=== PATIENT | male | born 1935 | race Caucasian/White ===

== ENCOUNTER 2017-03-16 20:29 | Emergency (ER) | payer SELFPAY ==
[~2017-03-16] VITALS: Ht 180.3 cm; Wt 72.6 kg
[2017-03-16] MEDS ORDERED: HYDROmorphone HCL 2 MG/ML VL IV ONE ×3 (21:00→22:00)
[2017-03-16] MEDS ORDERED: ONDANSETRON HCL 4 MG/2 ML VIAL IV ONE (21:00)
[2017-03-16 21:47] VITALS: BP 117/67
[2017-03-16] MEDS ORDERED: SODIUM CHLORIDE 0.9% 1,000 ML IVB ONE (21:58)
== END 2017-03-16 22:53 | disposition left against medical advice (07) ==
LOC: ER 20:37
DX: S72.001A Fracture of unspecified part of neck of right femur, initial encounter for closed fracture (principal); W18.39XA Other fall on same level, initial encounter; Y93.89 Activity, other specified; Y92.89 Other specified places as the place of occurrence of the external cause; Y99.8 Other external cause status
CPT/HCPCS: 71010; 73502; 73552; 93005; 94761; 96374; 96375; 96376; 99285; J1170; J2405

== ENCOUNTER 2018-07-27 19:08 | Inpatient (IN) | payer MEDICARE ==
[~2018-07-27] VITALS: Ht 180.3 cm; Wt 66.5 kg
[2018-07-27 20:57] LABS: INR 1.03 (0.9-1.15); Partial Thromboplastin Time 27.8 sec (23.78-33.04)
[2018-07-27 20:59] LABS: Basophils # (auto) 0 uL; Basophils % (auto) 0.3 % (0.0-2.0); Eosinophils # (auto) 0 uL; Eosinophils % (auto) 0.2 % (0.0-7.0); Hematocrit 41.6 % (41.0-53.0); Lymphocytes # (auto) 0.6 uL; Lymphocytes % (auto) 5.6 % (10.0-50.0); Mean Corpuscular Hemoglobin 32.4 pg (28.0-32.0); Mean Corpuscular Hgb Conc. 33.6 g/dL (32.0-36.0); Mean Corpuscular Volume 96.4 fL (80.0-100.0); Monocytes # (auto) 1.2 uL; Monocytes % (auto) 10.9 % (0.0-12.0); Neutrophils # (auto) 9.5 uL; Platelet Count (auto) 189 10^3/uL (140-450); Red Blood Cells 4.32 10^6/uL (4.5-5.90); Red Cell Distribution Width 15.1 % (11.8-14.3); White Blood Cell 11.4 10^3/uL (4.4-10.8)
[2018-07-27 21:04] LABS: Albumin 3.6 g/dL (3.4-5.0); BUN/Creatinine Ratio 9.5; Bilirubin, Total 0.6 mg/dL (0.2-1.0); Potassium 3.7 mmol/L (3.5-5.1); Total Protein 7.3 g/dL (6.4-8.2)
[2018-07-27 21:09] LABS: Urine Bacteria NONE SEEN /hpf (None Seen); Urine Blood 3+ /uL (Negative); Urine Mucus FEW (None Seen); Urine Specific Gravity 1.016 (1.001-1.035); Urine WBC 1 /hpf (0 - 3)
[2018-07-27] MEDS ORDERED: LEVOFLOXACIN 500 MG TAB PO ONE (22:45)
[2018-07-28] VITALS (7 sets, daily range): BP systolic 96–133; BP diastolic 60–69
[2018-07-28] MEDS ORDERED: ONDANSETRON HCL 4 MG/2 ML VIAL IV PRN (00:45)
[2018-07-28] MEDS ORDERED: ACETAMINOPHEN 325 MG TAB PO PRN (00:45)
[2018-07-28] MEDS: SODIUM CHLORIDE 0.9% 1,000 ML IV SCH ×2 (02:18→19:20)
[2018-07-28] MEDS: HYDROcodone-ACET 5/325MG TAB PO PRN ×3 (03:39→20:44)
[2018-07-28] MEDS: PANTOPRAZOLE 40 MG TAB PO SCH (07:30)
[2018-07-28] MEDS: cefTRIAXone 1GM/10ml IVPUSH 10 ML IV SCH (08:41)
[2018-07-28] MEDS ORDERED: FINASTERIDE 5 MG TAB PO ONE (12:45)
[2018-07-28] MEDS ORDERED: TAMSULOSIN HYDROCHLORIDE 0.4 MG CAP PO ONE (12:45)
[2018-07-28] MEDS: TAMSULOSIN HYDROCHLORIDE 0.4 MG CAP PO SCH (19:11)
[2018-07-28] MEDS: DOCUSATE SOD 100 MG CAP PO SCH (20:43)
[2018-07-29] MEDS: SODIUM CHLORIDE 0.9% 1,000 ML IV SCH ×2 (03:21→16:41)
[2018-07-29 05:00] VITALS: BP 97/53
[2018-07-29] MEDS: PANTOPRAZOLE 40 MG TAB PO SCH (05:48)
[2018-07-29 07:03] LABS: Basophils # (auto) 0.1 uL; Basophils % (auto) 0.7 % (0.0-2.0); Eosinophils # (auto) 0.1 uL; Eosinophils % (auto) 1.4 % (0.0-7.0); Hematocrit 33.5 % (41.0-53.0); Hemoglobin 11.5 g/dL (13.5-17.5); Lymphocytes # (auto) 1.2 uL; Lymphocytes % (auto) 12.3 % (10.0-50.0); Mean Corpuscular Hemoglobin 32.6 pg (28.0-32.0); Mean Corpuscular Hgb Conc. 34.4 g/dL (32.0-36.0); Monocytes # (auto) 1.2 uL; Monocytes % (auto) 12.3 % (0.0-12.0); Neutrophils # (auto) 7.1 uL; Neutrophils % (auto) 73.3 % (37.0-80.0); Nucleated Red Blood Cells % 0.1 %; Platelet Count (auto) 157 10^3/uL (140-450); Red Blood Cells 3.52 10^6/uL (4.5-5.90); Red Cell Distribution Width 14.9 % (11.8-14.3); White Blood Cell 9.8 10^3/uL (4.4-10.8)
[2018-07-29 07:20] LABS: Albumin 2.6 g/dL (3.4-5.0); BUN/Creatinine Ratio 16.7; Calcium 8.2 mg/dL (8.5-10.1); Potassium 3.4 mmol/L (3.5-5.1)
[2018-07-29 07:23] LABS: Bilirubin, Total 0.7 mg/dL (0.2-1.0); Total Protein 5.8 g/dL (6.4-8.2)
[2018-07-29 09:00] VITALS: BP 91/73
[2018-07-29] MEDS: DOCUSATE SOD 100 MG CAP PO SCH ×2 (10:51→21:42)
[2018-07-29] MEDS: cefTRIAXone 1GM/10ml IVPUSH 10 ML IV SCH (10:51)
[2018-07-29] MEDS: FINASTERIDE 5 MG TAB PO SCH (10:52)
[2018-07-29] MEDS ORDERED: LACTULOSE 20Gm/30ML SOLN PO ONE (11:00)
[2018-07-29] MEDS: HYDROcodone-ACET 5/325MG TAB PO PRN (11:09)
[2018-07-29 13:00] VITALS: BP 100/55
[2018-07-29 17:00] VITALS: BP 111/60
[2018-07-29] MEDS: TAMSULOSIN HYDROCHLORIDE 0.4 MG CAP PO SCH (17:14)
[2018-07-29 22:00] VITALS: BP 105/59
[2018-07-30] MEDS: HYDROcodone-ACET 5/325MG TAB PO PRN ×2 (02:07→23:06)
[2018-07-30 05:00] VITALS: BP 107/59
[2018-07-30] MEDS: SODIUM CHLORIDE 0.9% 1,000 ML IV SCH ×2 (05:37→19:21)
[2018-07-30 08:00] VITALS: BP 112/82
[2018-07-30] MEDS: PANTOPRAZOLE 40 MG TAB PO SCH (08:03)
[2018-07-30 08:04] LABS: Basophils # (auto) 0.1 uL; Eosinophils # (auto) 0.1 uL; Eosinophils % (auto) 0.6 % (0.0-7.0); Hematocrit 34.3 % (41.0-53.0); Hemoglobin 11.5 g/dL (13.5-17.5); Lymphocytes # (auto) 1.4 uL; Mean Corpuscular Hemoglobin 31.9 pg (28.0-32.0); Mean Corpuscular Hgb Conc. 33.5 g/dL (32.0-36.0); Mean Corpuscular Volume 95.1 fL (80.0-100.0); Monocytes # (auto) 1.1 uL; Monocytes % (auto) 13.7 % (0.0-12.0); Neutrophils # (auto) 5.5 uL; Neutrophils % (auto) 67.7 % (37.0-80.0); Nucleated Red Blood Cells % 0.1 %; Platelet Count (auto) 164 10^3/uL (140-450); Red Cell Distribution Width 14.8 % (11.8-14.3); White Blood Cell 8.1 10^3/uL (4.4-10.8)
[2018-07-30 08:15] LABS: Albumin 2.8 g/dL (3.4-5.0); BUN/Creatinine Ratio 12.5; Bilirubin, Total 0.8 mg/dL (0.2-1.0); Calcium 8.1 mg/dL (8.5-10.1); Potassium 3.2 mmol/L (3.5-5.1); Total Protein 6.3 g/dL (6.4-8.2)
[2018-07-30 09:00] VITALS: BP 102/75
[2018-07-30] MEDS ORDERED: POTASSIUM CHL 20 Meq TABLET PO ONE (09:30)
[2018-07-30] MEDS: cefTRIAXone 1GM/10ml IVPUSH 10 ML IV SCH (09:41)
[2018-07-30] MEDS: DOCUSATE SOD 100 MG CAP PO SCH ×2 (09:42→22:00)
[2018-07-30] MEDS: FINASTERIDE 5 MG TAB PO SCH (09:42)
[2018-07-30 13:00] VITALS: BP 99/70
[2018-07-30 17:53] VITALS: BP 101/77
[2018-07-30] MEDS: TAMSULOSIN HYDROCHLORIDE 0.4 MG CAP PO SCH (17:57)
[2018-07-30 22:00] VITALS: BP 107/56
[2018-07-31] MEDS: HYDROcodone-ACET 5/325MG TAB PO PRN ×4 (00:27→18:10)
[2018-07-31 05:00] VITALS: BP 131/66
[2018-07-31] MEDS: PANTOPRAZOLE 40 MG TAB PO SCH ×2 (06:50→09:06)
[2018-07-31 08:00] VITALS: BP 122/66
[2018-07-31] MEDS: SODIUM CHLORIDE 0.9% 1,000 ML IV SCH (08:41)
[2018-07-31 08:52] VITALS: BP 121/66
[2018-07-31] MEDS: FINASTERIDE 5 MG TAB PO SCH (09:05)
[2018-07-31] MEDS: DOCUSATE SOD 100 MG CAP PO SCH ×2 (09:06→22:00)
[2018-07-31] MEDS: cefTRIAXone 1GM/10ml IVPUSH 10 ML IV SCH (09:06)
[2018-07-31] MEDS ORDERED: LACTULOSE 20Gm/30ML SOLN PO PRN (09:30)
[2018-07-31 13:02] LABS: Basophils # (auto) 0.1 uL; Basophils % (auto) 0.9 % (0.0-2.0); Eosinophils # (auto) 0.1 uL; Eosinophils % (auto) 0.9 % (0.0-7.0); Hematocrit 35.1 % (41.0-53.0); Hemoglobin 11.7 g/dL (13.5-17.5); Lymphocytes % (auto) 12.8 % (10.0-50.0); Mean Corpuscular Hemoglobin 31.8 pg (28.0-32.0); Mean Corpuscular Hgb Conc. 33.3 g/dL (32.0-36.0); Mean Corpuscular Volume 95.5 fL (80.0-100.0); Monocytes # (auto) 0.9 uL; Monocytes % (auto) 11.9 % (0.0-12.0); Neutrophils # (auto) 5.9 uL; Neutrophils % (auto) 73.5 % (37.0-80.0); Platelet Count (auto) 174 10^3/uL (140-450); Red Blood Cells 3.68 10^6/uL (4.5-5.90); Red Cell Distribution Width 14.3 % (11.8-14.3)
[2018-07-31 13:06] VITALS: BP 104/69
[2018-07-31 13:18] LABS: Albumin 2.8 g/dL (3.4-5.0); BUN/Creatinine Ratio 15.6; Calcium 8.4 mg/dL (8.5-10.1); Potassium 3.2 mmol/L (3.5-5.1)
[2018-07-31 13:23] LABS: Bilirubin, Total 0.8 mg/dL (0.2-1.0); Total Protein 6.6 g/dL (6.4-8.2)
[2018-07-31 17:00] VITALS: BP 115/70
[2018-07-31] MEDS: TAMSULOSIN HYDROCHLORIDE 0.4 MG CAP PO SCH (17:46)
[2018-07-31 20:00] VITALS: BP 115/60
[2018-08-01] MEDS: HYDROcodone-ACET 5/325MG TAB PO PRN (03:45)
[2018-08-01 05:00] VITALS: BP 119/67
[2018-08-01] MEDS: PANTOPRAZOLE 40 MG TAB PO SCH (05:00)
[2018-08-01 06:19] LABS: Basophils # (auto) 0.1 uL; Basophils % (auto) 0.8 % (0.0-2.0); Eosinophils # (auto) 0.1 uL; Eosinophils % (auto) 0.8 % (0.0-7.0); Hematocrit 34.3 % (41.0-53.0); Hemoglobin 11.6 g/dL (13.5-17.5); Lymphocytes # (auto) 0.9 uL; Lymphocytes % (auto) 10.9 % (10.0-50.0); Mean Corpuscular Hgb Conc. 33.6 g/dL (32.0-36.0); Mean Corpuscular Volume 95.2 fL (80.0-100.0); Monocytes # (auto) 0.9 uL; Monocytes % (auto) 10.3 % (0.0-12.0); Neutrophils # (auto) 6.4 uL; Neutrophils % (auto) 77.2 % (37.0-80.0); Platelet Count (auto) 182 10^3/uL (140-450); Red Blood Cells 3.61 10^6/uL (4.5-5.90); Red Cell Distribution Width 14.3 % (11.8-14.3); White Blood Cell 8.2 10^3/uL (4.4-10.8)
[2018-08-01 06:44] LABS: Calcium 8.3 mg/dL (8.5-10.1)
[2018-08-01 06:47] LABS: Albumin 2.7 g/dL (3.4-5.0); BUN/Creatinine Ratio 12.9
[2018-08-01 06:59] LABS: Bilirubin, Total 0.8 mg/dL (0.2-1.0); Total Protein 6.6 g/dL (6.4-8.2)
[2018-08-01] MEDS: SODIUM CHLORIDE 0.9% 1,000 ML IV SCH ×2 (09:37→11:21)
[2018-08-01] MEDS: cefTRIAXone 1GM/10ml IVPUSH 10 ML IV SCH (09:37)
[2018-08-01] MEDS: FINASTERIDE 5 MG TAB PO SCH (10:00)
[2018-08-01] MEDS: DOCUSATE SOD 100 MG CAP PO SCH ×2 (10:00→23:00)
[2018-08-01] MEDS ORDERED: POTASSIUM CHL 20 Meq TABLET PO ONE (10:30)
[2018-08-01] MEDS ORDERED: METOCLOPRAMIDE HCL 5MG/ml INJ 2ml VIAL IV ONE (15:28)
[2018-08-01] MEDS ORDERED: MIDAZOLAM HCL 1MG/1ML-2 ML VIAL ONE (15:34)
[2018-08-01] MEDS ORDERED: ROCURONIUM 10MG/ML 10ML VIAL IV ONE (15:36)
[2018-08-01] MEDS ORDERED: LIDOCAINE 2% (LOCAL ANESTH.) PF 5ml SDV ONE (15:36)
[2018-08-01] MEDS ORDERED: ETOMIDATE (2MG/ML) 20ML VIAL IV ONE (15:36)
[2018-08-01] MEDS ORDERED: fentaNYL CITRATE 100 MCG/2 ML VL ONE (15:47)
[2018-08-01] MEDS ORDERED: NALOXONE HCL 0.4 MG/ML VIAL IV PRN (16:00)
[2018-08-01] MEDS ORDERED: MORPHINE SULFATE 4 MG/ML SYR/VIAL IV PRN (16:00)
[2018-08-01] MEDS ORDERED: ONDANSETRON HCL 4 MG/2 ML VIAL IV ONE (16:00)
[2018-08-01] MEDS ORDERED: BELLADONNA ALKAL/OPIUM (16.2/30MG) RECT SUPP PR ONE ×2 (17:29→17:34)
[2018-08-01] MEDS ORDERED: MORPHINE SULF INJ 2 MG/ML SYRINGE 1ML ONE (17:54)
[2018-08-01] MEDS: TAMSULOSIN HYDROCHLORIDE 0.4 MG CAP PO SCH (18:00)
[2018-08-01] MEDS ORDERED: POTASSIUM EFFERVESENT TAB 25 MEQ PO ONE ×2 (18:45)
[2018-08-01] MEDS ORDERED: traMADol HCL 50 MG TAB PO PRN (20:00)
[2018-08-01 21:34] VITALS: BP 107/53
[2018-08-01] MEDS ORDERED: INSULIN LANTUS (GLARGINE) 1 /0.01ml (100units/ml) SC SCH (22:00)
[2018-08-02] MEDS: HYDROcodone-ACET 5/325MG TAB PO PRN ×2 (00:30→10:04)
[2018-08-02] MEDS: SODIUM CHLORIDE 0.9% 1,000 ML IV SCH ×2 (00:41→14:01)
[2018-08-02 05:00] VITALS: BP 106/56
[2018-08-02 05:52] LABS: Basophils # (auto) 0.1 uL; Basophils % (auto) 0.9 % (0.0-2.0); Eosinophils # (auto) 0.1 uL; Eosinophils % (auto) 0.5 % (0.0-7.0); Hematocrit 32.3 % (41.0-53.0); Hemoglobin 10.8 g/dL (13.5-17.5); Lymphocytes # (auto) 1.2 uL; Lymphocytes % (auto) 11.4 % (10.0-50.0); Mean Corpuscular Hemoglobin 32.1 pg (28.0-32.0); Mean Corpuscular Hgb Conc. 33.5 g/dL (32.0-36.0); Mean Corpuscular Volume 95.8 fL (80.0-100.0); Monocytes # (auto) 1.1 uL; Monocytes % (auto) 10.3 % (0.0-12.0); Neutrophils # (auto) 8.1 uL; Neutrophils % (auto) 76.9 % (37.0-80.0); Platelet Count (auto) 171 10^3/uL (140-450); Red Blood Cells 3.37 10^6/uL (4.5-5.90); Red Cell Distribution Width 14.6 % (11.8-14.3); White Blood Cell 10.5 10^3/uL (4.4-10.8)
[2018-08-02 06:07] LABS: Albumin 2.4 g/dL (3.4-5.0); BUN/Creatinine Ratio 10.8; Calcium 7.8 mg/dL (8.5-10.1); Potassium 3.3 mmol/L (3.5-5.1)
[2018-08-02 06:10] LABS: Bilirubin, Total 0.8 mg/dL (0.2-1.0)
[2018-08-02 08:47] VITALS: BP 104/69
[2018-08-02] MEDS: DOCUSATE SOD 100 MG CAP PO SCH ×2 (09:24→22:00)
[2018-08-02] MEDS: FINASTERIDE 5 MG TAB PO SCH (09:24)
[2018-08-02] MEDS: cefTRIAXone 1GM/10ml IVPUSH 10 ML IV SCH (09:25)
[2018-08-02] MEDS: BELLADONNA ALKAL/OPIUM (16.2/30MG) RECT SUPP PR SCH (09:25)
[2018-08-02 14:54] VITALS: BP 104/64
[2018-08-02] MEDS: TAMSULOSIN HYDROCHLORIDE 0.4 MG CAP PO SCH (16:58)
[2018-08-02 17:08] VITALS: BP 101/60
[2018-08-02 22:00] VITALS: BP 109/68
[2018-08-03 05:17] VITALS: BP 120/82
[2018-08-03] MEDS: SODIUM CHLORIDE 0.9% 1,000 ML IV SCH ×2 (07:06→16:41)
[2018-08-03] MEDS: PANTOPRAZOLE 40 MG TAB PO SCH (07:06)
[2018-08-03] MEDS: HYDROcodone-ACET 5/325MG TAB PO PRN ×2 (07:06→16:51)
[2018-08-03 07:36] LABS: Basophils # (auto) 0.1 uL; Basophils % (auto) 0.9 % (0.0-2.0); Eosinophils # (auto) 0.1 uL; Eosinophils % (auto) 1.3 % (0.0-7.0); Hematocrit 29.7 % (41.0-53.0); Hemoglobin 9.9 g/dL (13.5-17.5); Lymphocytes # (auto) 1.2 uL; Lymphocytes % (auto) 10.8 % (10.0-50.0); Mean Corpuscular Hemoglobin 31.8 pg (28.0-32.0); Mean Corpuscular Hgb Conc. 33.4 g/dL (32.0-36.0); Mean Corpuscular Volume 95.2 fL (80.0-100.0); Monocytes # (auto) 0.9 uL; Monocytes % (auto) 8.6 % (0.0-12.0); Neutrophils # (auto) 8.5 uL; Neutrophils % (auto) 78.4 % (37.0-80.0); Platelet Count (auto) 179 10^3/uL (140-450); Red Blood Cells 3.12 10^6/uL (4.5-5.90); Red Cell Distribution Width 14.5 % (11.8-14.3); White Blood Cell 10.8 10^3/uL (4.4-10.8)
[2018-08-03 08:15] LABS: Albumin 2.3 g/dL (3.4-5.0); BUN/Creatinine Ratio 12.7; Bilirubin, Total 0.7 mg/dL (0.2-1.0); Total Protein 6.1 g/dL (6.4-8.2)
[2018-08-03 09:00] VITALS: BP 109/52
[2018-08-03] MEDS ORDERED: POTASSIUM CHL 20 Meq TABLET PO ONE (09:45)
[2018-08-03] MEDS: BELLADONNA ALKAL/OPIUM (16.2/30MG) RECT SUPP PR SCH (10:00)
[2018-08-03] MEDS: DOCUSATE SOD 100 MG CAP PO SCH ×2 (10:29→21:56)
[2018-08-03] MEDS: FINASTERIDE 5 MG TAB PO SCH (10:30)
[2018-08-03 13:00] VITALS: BP 101/48
[2018-08-03 14:18] VITALS: BP 109/52
[2018-08-03 17:00] VITALS: BP 109/53
[2018-08-03] MEDS: TAMSULOSIN HYDROCHLORIDE 0.4 MG CAP PO SCH (19:36)
[2018-08-03 21:36] VITALS: BP 101/50
[2018-08-04 00:59] LABS: Urine Bacteria FEW /hpf (None Seen); Urine Blood 3+ /uL (Negative); Urine Mucus FEW (None Seen); Urine Specific Gravity 1.013 (1.001-1.035); Urine WBC 29 /hpf (0 - 3)
[2018-08-04 04:45] VITALS: BP 111/56
[2018-08-04] MEDS: SODIUM CHLORIDE 0.9% 1,000 ML IV SCH (06:01)
[2018-08-04] MEDS: PANTOPRAZOLE 40 MG TAB PO SCH (06:49)
[2018-08-04 08:36] VITALS: BP 124/62
[2018-08-04] MEDS: DOCUSATE SOD 100 MG CAP PO SCH (10:32)
[2018-08-04] MEDS: FINASTERIDE 5 MG TAB PO SCH (10:32)
[2018-08-04] MEDS: HYDROcodone-ACET 5/325MG TAB PO PRN (10:35)
[2018-08-04 12:31] VITALS: BP 98/50
== END 2018-08-04 12:45 | disposition home health service (06) | DRG 665 ==
LOC: ER 19:08 → WEST WING 19:09 → EAST 07-28 02:51
PROVIDERS: ADMIT Nurse Practitioner; ATTEND Family Medicine
PROC: 0VB08ZZ Excision of Prostate, Via Natural or Artificial Opening Endoscopic (ICD-10-PCS; principal; 2018-08-01 15:28)
DX: N13.8 Other obstructive and reflux uropathy (principal); N17.0 Acute kidney failure with tubular necrosis; D62 Acute posthemorrhagic anemia; N18.4 Chronic kidney disease, stage 4 (severe); M48.56XA Collapsed vertebra, not elsewhere classified, lumbar region, initial encounter for fracture; M48.54XA Collapsed vertebra, not elsewhere classified, thoracic region, initial encounter for fracture; L03.113 Cellulitis of right upper limb; N39.0 Urinary tract infection, site not specified; N40.1 Benign prostatic hyperplasia with lower urinary tract symptoms; N13.9 Obstructive and reflux uropathy, unspecified; E87.6 Hypokalemia; K44.9 Diaphragmatic hernia without obstruction or gangrene; K57.30 Diverticulosis of large intestine without perforation or abscess without bleeding; K59.00 Constipation, unspecified; M43.16 Spondylolisthesis, lumbar region; M85.80 Other specified disorders of bone density and structure, unspecified site; K21.9 Gastro-esophageal reflux disease without esophagitis; M19.90 Unspecified osteoarthritis, unspecified site; Z90.79 Acquired absence of other genital organ(s)
CPT/HCPCS: 36415; 51702; 71045; 74176; 76775; 80053; 81001; 84100; 84154; 85025; 85610; 85730; 87086; 93971; A6257; J0696; J2001; J2250; J2405

== ENCOUNTER → 2018-08-22 | Outpatient (CLI) | payer MEDICARE ==
[2018-08-22 14:44] LABS: Calcium 8.9 mg/dL (8.5-10.1); Potassium 4.3 mmol/L (3.5-5.1)
[2018-08-22 14:46] LABS: BUN/Creatinine Ratio 15.7
== END | disposition home or self-care (01) ==
LOC: LAB 13:08
PROVIDERS: ATTEND Urology
DX: R33.9 Retention of urine, unspecified (principal)
CPT/HCPCS: 36415; 80048; 84153; 84154